=== PATIENT | female | born 1970 | race Caucasian/White ===

== ENCOUNTER → 2017-10-16 | Outpatient (CLI) | payer BC ==
[~2017-10-16] MED LIST: CYCL-331 PO; DIPH25CA58 PO; RABE20TA18 PO; TOPI25TA7 PO
== END | disposition home or self-care (01) ==
LOC: MAMMO 08:19
PROVIDERS: ATTEND Family Medicine
DX: Z12.31 Encounter for screening mammogram for malignant neoplasm of breast (principal)
CPT/HCPCS: 77063; 77067

== ENCOUNTER → 2017-11-07 | Day surgery (SDC) | payer BC ==
[~2017-11-07] MED LIST changes: +ALBUTEROL SULFATE 2.5 MG/3 ML NEBU. NEB PRN; +ATROPINE 0.5 MG/5 ML DISP.SYRIN. IV PRN; +CITA40TA12 PO; +CLON0.5T PO; +IV NORMAL SALINE 1,000ML 1,000 ML IV SCH; +IV RINGERS SOLUTION,LACTATED 1,000 ML IV ONE; +LACT1CAP8 PO; +LIDOCAINE 2% PF Vial for OR 5 ML VIAL. ONE; +NALOXONE 0.4 MG/ML VIAL. IV PRN; +ONDANSETRON PF 4 MG/2 ML VIAL. IV PRN; +PROPOFOL 40 ML IV ONE; +TEMA15CA PO; +diphenhydrAMINE 50 MG/ML VIAL IV PRN
[2017-11-07 13:31] LABS: U PREG PATIENT NEGATIVE (NEG)
[2017-11-07 14:58] VITALS: BP 116/72
== END | disposition home or self-care (01) ==
LOC: SURG 11:54
PROVIDERS: ATTEND Internal Medicine Gastroenterology
DX: K63.5 Polyp of colon (principal); K22.8 Other specified diseases of esophagus; K63.89 Other specified diseases of intestine; K21.9 Gastro-esophageal reflux disease without esophagitis; F41.9 Anxiety disorder, unspecified; F32.9 Major depressive disorder, single episode, unspecified; J45.909 Unspecified asthma, uncomplicated; Z88.6 Allergy status to analgesic agent; Z98.890 Other specified postprocedural states; F17.210 Nicotine dependence, cigarettes, uncomplicated; Z72.89 Other problems related to lifestyle
CPT/HCPCS: 43239; 45380; 45385; 81025; J2704; J3010; J7120; J2001

== ENCOUNTER 2018-05-14 08:19 | Observation (INO) | payer BC ==
[~2018-05-14] VITALS: Ht 172.7 cm; Wt 102.1 kg
[~2018-05-14 08:19] MED LIST changes: -ALBUTEROL SULFATE 2.5 MG/3 ML NEBU. NEB PRN; -ATROPINE 0.5 MG/5 ML DISP.SYRIN. IV PRN; -IV NORMAL SALINE 1,000ML 1,000 ML IV SCH; -IV RINGERS SOLUTION,LACTATED 1,000 ML IV ONE; -LIDOCAINE 2% PF Vial for OR 5 ML VIAL. ONE; -NALOXONE 0.4 MG/ML VIAL. IV PRN; -ONDANSETRON PF 4 MG/2 ML VIAL. IV PRN; -PROPOFOL 40 ML IV ONE; -diphenhydrAMINE 50 MG/ML VIAL IV PRN
[2018-05-14] MEDS ORDERED: MECLIZINE 12.5 MG TABLET. PO PRN (08:45)
[2018-05-14] MEDS ORDERED: IV NORMAL SALINE 1,000ML 1,000 ML IV ONE (09:00)
[2018-05-14 09:03] LABS: BASO % 0 % (0-3); EOS # 0.1 x10^3/uL (0.0-0.7); EOS % 1 % (0-3); HEMATOCRIT 41.8 % (36.0-47.0); HEMOGLOBIN 13.8 g/dL (12.0-15.5); LYMPH # 3.3 x10^3/uL (1.0-4.8); LYMPH % 27 % (24-48); MEAN CORPUSCULAR HEMOGLOBIN 31 pg (25-35); MEAN CORPUSCULAR HGB CONC 33 g/dL (31-37); MEAN CORPUSCULAR VOLUME 93 fL (79-100); MONO # 0.9 x10^3/uL (0.0-1.1); MONO % 8 % (0-9); NEUT # 7.7 x10^3uL (1.8-7.7); NEUT % 64 % (31-73); PLATELET COUNT 300 x10^3/uL (140-400); RED BLOOD COUNT 4.52 x10^6/uL (3.50-5.40); RED CELL DISTRIBUTION WIDTH 13.4 % (11.5-14.5); WHITE BLOOD COUNT 12.1 x10^3/uL (4.0-11.0)
[2018-05-14 09:09] LABS: BARBITURATES NEG (NEG); BENZODIAZEPINES NEG (NEG); CANNABINOIDS NEG (NEG); COCAINE NEG (NEG); METHADONE NEG (NEG); OPIATES NEG (NEG); PHENCYCLIDINE NEG (NEG)
[2018-05-14 09:13] LABS: AMPHETAMINE/METHAMPHETAMINE NEG (NEG)
[2018-05-14 09:18] LABS: ALBUMIN 3.5 g/dL (3.4-5.0); ALBUMIN/GLOBULIN RATIO 0.9 (1.0-1.7); CALCIUM 8.8 mg/dL (8.5-10.1); CREATININE 0.9 mg/dL (0.6-1.0); GFR 67.4; POTASSIUM 3.7 mmol/L (3.5-5.1); TOTAL BILIRUBIN 0.2 mg/dL (0.2-1.0); TOTAL PROTEIN 7.3 g/dL (6.4-8.2)
--- NOTE | 2018-05-14 09:24 | RAD ---
CHEST PA LATERAL History: DIZZY Comparison: Two-view chest 04/18/2017, [facility]. Findings: The cardiomediastinal silhouette is normal. Pulmonary vasculature is normal. The lungs are clear. No pleural effusion or pneumothorax is seen. There is no acute bone abnormality. IMPRESSION: No acute cardiopulmonary process. Electronically signed by: Leonard Ulloa MD (05/14/2018 9:22 AM) [id number]
[2018-05-14 09:25] LABS: BACTERIA,URINE FEW /HPF (0-FEW); BILIRUBIN,URINE NEG (NEG); CLARITY,URINE HAZY; COLOR,URINE YELLOW; GLUCOSE,URINE NEG (NEG); NITRITE,URINE NEG (NEG); SQUAMOUS EPITHELIAL CELL,UR MOD /LPF; UROBILINOGEN,URINE 0.2 mg/dL (0.2 mg/dL); YEAST,URINE PRESENT /HPF
--- NOTE | 2018-05-14 09:36 | RAD ---
CT scan of the head without contrast 05/14/2018 Clinical History: Dizziness. Technique: Unenhanced, contiguous, 5 mm axial sections were obtained through the head. One or more of the following individualized dose reduction techniques were utilized for this study: 1. Automated exposure control. 2. Adjustment of the mA and/or kV according to patient size. 3. Use of iterative reconstruction technique. Findings: Comparison study is dated 02/22/2011. The ventricles and sulci are within normal limits in size and configuration. No focal area of abnormal attenuation is seen involving the brain parenchyma. No extra-axial fluid collection is seen. No skull fracture is seen. Impression: Negative study. Electronically signed by: Miguel Angel Desouza MD (05/14/2018 9:33 AM) [id number]
--- NOTE | 2018-05-14 11:55 | PHYS DOC ---
Past History Past Medical History: Depression, GERD, IBS, Migraines, Other Past Surgical History: Other Smoking: Non-smoker Alcohol Use: Rarely Drug Use: None Adult General Chief Complaint Chief Complaint: DIZZY/LIGHT HEADED HPI HPI Patient is a 47 year old female who presents with complaining of dizziness. Patient states she felt sudden onset of dizziness while she was at work at 2300 last night and had slow speech and had to think about remembering the words and talking. Patient states the episodes last about 2-3 hours and she left her work around 1:30 AM and was able to fall asleep but this morning he still had mild confusion and dizziness. Patient complaining of increasing dizziness with moving her head and change of position and also complaining of headache and blurred vision. She complaining of left facial mild paresthesia Patient states she did not have history of the same episode or migraine headache or head injury. Review of Systems Review of Systems Constitutional: Denies fever or chills [] Eyes: Denies change in visual acuity, redness, or eye pain [] HENT: Denies nasal congestion or sore throat [] Respiratory: Denies cough or shortness of breath [] Cardiovascular: No additional information not addressed in HPI [] GI: Denies abdominal pain, nausea, vomiting, bloody stools or diarrhea [] : Denies dysuria or hematuria [] Musculoskeletal: Denies back pain or joint pain [] Integument: Denies rash or skin lesions [] Neurologic: Reports dizziness and headache and sensory change, denie focal weakness. Endocrine: Denies polyuria or polydipsia [] All other systems were reviewed and found to be within normal limits, except as documented in this note. Current Medications Current Medications Current Medications Medications (Trade) Dose Ordered Sig/Karli Start Time Stop Time Status Last Admin Dose Admin Meclizine HCl (Antivert) 25 mg PRN Q6HRS PRN 05/14/18 08:45 05/14/18 09:24 25 MG Sodium Chloride 1,000 ml @ 1,000 mls/hr 1X ONCE 05/14/18 09:00 05/14/18 09:59 DC 05/14/18 09:25 1,000 MLS/HR Allergies Allergies Allergies Coded Allergies Type Severity Reaction Last Updated Verified hydrocodone Allergy Intermediate 06/17/13 Yes Physical Exam Physical Exam Constitutional: Well developed, well nourished, mild distress, non-toxic appearance. [] HENT: Normocephalic, atraumatic, bilateral external ears normal, oropharynx moist, no oral exudates, nose normal. [] Eyes: PERRLA, EOMI, conjunctiva normal, no discharge. [] Neck: Normal range of motion, no tenderness, supple, no stridor. [] Cardiovascular:Heart rate regular rhythm, no murmur [] Lungs & Thorax: Bilateral breath sounds clear to auscultation [] Abdomen: Bowel sounds normal, soft, no tenderness, no masses, no pulsatile masses. [] Skin: Warm, dry, no erythema, no rash. [] Back: No tenderness, no CVA tenderness. [] Extremities: No tenderness, no cyanosis, no clubbing, ROM intact, no edema. [] Neurologic: Alert and oriented X 3, normal motor function, subjective paresthesias of right side of face, no focal deficits noted. [] Psychologic: Affect normal, judgement normal, mood normal. [] Current Patient Data Vital Signs Vital Signs Date Time Temp Pulse Resp B/P (MAP) Pulse Ox O2 Delivery O2 Flow Rate FiO2 05/14/18 10:50 62 19 106/59 (75) 100 05/14/18 08:19 97.8 Room Air Lab Results Laboratory Tests Test 05/14/18 08:20 05/14/18 08:36 05/14/18 08:40 Urine Collection Type Void Urine Color Yellow Urine Clarity Hazy Urine pH 6.0 Urine Specific [place] 1.010 Urine Protein Neg (NEG-TRACE) Urine Glucose (UA) Neg mg/dL (NEG) Urine Ketones (Stick) Neg mg/dL (NEG) Urine Blood Trace (NEG) Urine Nitrite Neg (NEG) Urine Bilirubin Neg (NEG) Urine Urobilinogen Dipstick 0.2 mg/dL (0.2 mg/dL) Urine Leukocyte Esterase Small (NEG) Urine RBC 1-2 /HPF (0-2) Urine WBC 1-4 /HPF (0-4) Urine Squamous Epithelial Cells Mod /LPF Urine Bacteria Few /HPF (0-FEW) Urine Yeast Present /HPF Urine Opiates Screen Neg (NEG) Urine Methadone Screen Neg (NEG) Urine Barbiturates Neg (NEG) Urine Phencyclidine Screen Neg (NEG) Urine Amphetamine/Methamphetamine Neg (NEG) Urine Benzodiazepines Screen Neg (NEG) Urine Cocaine Screen Neg (NEG) Urine Cannabinoids Screen Neg (NEG) Urine Ethyl Alcohol Neg (NEG) Glucose (Fingerstick) 89 mg/dL (70-99) White Blood Count 12.1 x10^3/uL (4.0-11.0) H Red Blood Count 4.52 x10^6/uL (3.50-5.40) Hemoglobin 13.8 g/dL (12.0-15.5) Hematocrit 41.8 % (36.0-47.0) Mean Corpuscular Volume 93 fL (79-100) Mean Corpuscular Hemoglobin 31 pg (25-35) Mean Corpuscular Hemoglobin Concent 33 g/dL (31-37) Red Cell Distribution Width 13.4 % (11.5-14.5) Platelet Count 300 x10^3/uL (140-400) Neutrophils (%) (Auto) 64 % (31-73) Lymphocytes (%) (Auto) 27 % (24-48) Monocytes (%) (Auto) 8 % (0-9) Eosinophils (%) (Auto) 1 % (0-3) Basophils (%) (Auto) 0 % (0-3) Neutrophils # (Auto) 7.7 x10^3uL (1.8-7.7) Lymphocytes # (Auto) 3.3 x10^3/uL (1.0-4.8) Monocytes # (Auto) 0.9 x10^3/uL (0.0-1.1) Eosinophils # (Auto) 0.1 x10^3/uL (0.0-0.7) Basophils # (Auto) 0.0 x10^3/uL (0.0-0.2) Sodium Level 139 mmol/L (136-145) Potassium Level 3.7 mmol/L (3.5-5.1) Chloride Level 102 mmol/L (98-107) Carbon Dioxide Level 28 mmol/L (21-32) Anion Gap 9 (6-14) Blood Urea Nitrogen 18 mg/dL (7-20) Creatinine 0.9 mg/dL (0.6-1.0) Estimated GFR (Cockcroft-Gault) 67.4 BUN/Creatinine Ratio 20 (6-20) Glucose Level 97 mg/dL (70-99) Calcium Level 8.8 mg/dL (8.5-10.1) Total Bilirubin 0.2 mg/dL (0.2-1.0) Aspartate Amino Transferase (AST) 11 U/L (15-37) L Alanine Aminotransferase (ALT) 17 U/L (14-59) Alkaline Phosphatase 95 U/L (46-116) Creatine Kinase 38 U/L (26-192) Troponin I Quantitative < 0.017 ng/mL (0-0.055) Total Protein 7.3 g/dL (6.4-8.2) Albumin 3.5 g/dL (3.4-5.0) Albumin/Globulin Ratio 0.9 (1.0-1.7) L EKG EKG EKG interpreted by me. EKG performed care physician office at 0705 showed normal sinus rhythm at rate of 65, normal CO and QT intervals, no acute ST and T -wave abnormalities. Radiology/Procedures Radiology/Procedures [address] [address] IMAGING REPORT Signed PATIENT: MARTINA PARRY ACCOUNT: [id number] : 1970 LOCATION: ER AGE: 47 SEX: F EXAM STATUS: REG ER ORD. PHYSICIAN: KIMBER SCHMID MD REASON: dizziness PROCEDURE: CHEST PA & LATERAL CHEST PA LATERAL History: DIZZY Comparison: Two-view chest 04/18/2017, [facility]. Findings: The cardiomediastinal silhouette is normal. Pulmonary vasculature is normal. The lungs are clear. No pleural effusion or pneumothorax is seen. There is no acute bone abnormality. IMPRESSION: No acute cardiopulmonary process. Electronically signed by: Leonard Ulloa MD (05/14/2018 9:22 AM) [id number] DICTATED AND SIGNED BY: LEONARD ULLOA MD DATE: 05/14/18 0922 CC: JEFF SCHREIBER MD; KIMBER SCHMID MD ~ [address] [address] IMAGING REPORT Signed PATIENT: MARTINA PARRY ACCOUNT: [id number] : 1970 LOCATION: ER AGE: 47 SEX: F EXAM STATUS: REG ER ORD. PHYSICIAN: KIMBER SCHMID MD REASON: dizziness PROCEDURE: CT HEAD WO CONTRAST CT scan of the head without contrast 05/14/2018 Clinical History: Dizziness. Technique: Unenhanced, contiguous, 5 mm axial sections were obtained through the head. One or more of the following individualized dose reduction techniques were utilized for this study: 1. Automated exposure control. 2. Adjustment of the mA and/or kV according to patient size. 3. Use of iterative reconstruction technique. Findings: Comparison study is dated 02/22/2011. The ventricles and sulci are within normal limits in size and configuration. No focal area of abnormal attenuation is seen involving the brain parenchyma. No extra-axial fluid collection is seen. No skull fracture is seen. Impression: Negative study. Electronically signed by: Miguel Angel Desouza MD (05/14/2018 9:33 AM) [email or web address] DICTATED AND SIGNED BY: MIGUEL ANGEL DESOUZA MD DATE: 05/14/18 0933 CC: JEFF SCHREIBER MD; KIMBER SCHMID MD ~ Course & Med Decision Making Course & Med Decision Making Pertinent Labs and Imaging studies reviewed. (See chart for details) Evaluation of patient in ER showed 47-year-old female patient with complaining of dizziness and confusion and right facial numbness since last night. Patient had NIHS scale of 1 with unremarkable labs. Plan to admit patient for evaluation of confusion and paresthesia. Dragon Disclaimer Dragon Disclaimer This electronic medical record was generated, in whole or in part, using a voice recognition dictation system. Departure Departure: Impression: Primary Impression: Dizziness Disposition: 09 ADMITTED INPATIENT (at 1052) Admitting Physician: Jeff Schreiber (accepted admission at 1050) Condition: IMPROVED Referrals: JEFF SCHREIBER MD (PCP) NIHSS - ED NIH Stroke Scale: NIH Stroke Scale Response (Comments) Value Level of Consciousness: 0 Alert/Responsive 0 LOC Questions: 0 Answers both correctly 0 LOC Commands: 0 Performs both tasks 0 Best Gaze: 0 Normal 0 Visual: 0 No visual loss 0 Facial Palsy: 0 Normal, symmetrical 0 Motor - Left Arm 0 No drift 0 Motor - Right Arm 0 No drift 0 Motor - Left Leg 0 No drift 0 Motor: Right Leg 0 No drift 0 Limb Ataxia: 0 Absent 0 Sensory: 1 Mid to moderate loss 1 Best Language: 0 Normal 0 Dysathria: 0 Normal 0 Extinction and Inattention: 0 Normal 0 Total 1 KIMBER SCHMID MD May 14, 2018 11:55
[2018-05-14] MEDS ORDERED: CLON0.5T PO (13:30)
[2018-05-14] MEDS ORDERED: RABE20TA26 PO (13:30)
[2018-05-14 15:46] VITALS: BP 97/55
--- NOTE | 2018-05-14 16:09 | RAD ---
Clinical indications: Patient began feeling dizzy last night. Had visual changes in the right eye that lasted 30 minutes to 1 hour. Tingling in the right side of the face. History of smoking.. Duplex sonography of the cervical portion of both carotid arteries was performed including color flow imaging and spectral waveform analysis with flow velocity measurement and jacome scale evaluation. Right side: Peak systolic flow velocity of the CCA is 106 cm/sec. Peak systolic flow velocity of the ICA is 88 cm/sec. Thus, the ICA/CCA ratio is less than 1.0. Peak end diastolic flow velocity of the ICA is 36 cm/sec. The peak systolic velocity of the ECA is 87 cm/sec. Left side: Peak systolic flow velocity of the CCA is 93 cm/sec. Peak systolic flow velocity of the ICA is 64 cm/sec. Thus, the ICA/CCA ratio is less than 1.0. Peak end diastolic flow velocity of the ICA is 30 cm/sec. Peak systolic flow velocity of the ECA is 91 cm/sec. No significant plaque formation is identified. Antegrade vertebral flow is seen bilaterally. The measurements were made using the NASCET criteria. Impression:No significant plaque formation is identified within the cervical portion of either carotid artery. Electronically signed by: Adriano Forde MD (05/14/2018 4:06 PM) [place] [id number]
[2018-05-14] MEDS ORDERED: IOHEXOL 350 MG/ML 100 ML VIAL. IV ONE (20:00)
[2018-05-14 20:13] VITALS: BP 97/60
[2018-05-14 21:00] VITALS: BP 110/62
[2018-05-14] MEDS ORDERED: TEMAZEPAM 15 MG CAPSULE PO SCH (21:00)
[2018-05-14 23:15] VITALS: BP 110/65
[2018-05-15 00:14] VITALS: BP 110/65
[2018-05-15 04:30] VITALS: BP 109/53
[2018-05-15 05:34] VITALS: BP 98/59
[2018-05-15 06:23] LABS: BASO # 0.2 x10^3/uL (0.0-0.2); BASO % 1 % (0-3); EOS # 0.1 x10^3/uL (0.0-0.7); EOS % 1 % (0-3); HEMATOCRIT 42.5 % (36.0-47.0); HEMOGLOBIN 13.9 g/dL (12.0-15.5); LYMPH # 2.3 x10^3/uL (1.0-4.8); LYMPH % 20 % (24-48); MEAN CORPUSCULAR HEMOGLOBIN 31 pg (25-35); MEAN CORPUSCULAR HGB CONC 33 g/dL (31-37); MEAN CORPUSCULAR VOLUME 94 fL (79-100); MONO # 0.7 x10^3/uL (0.0-1.1); MONO % 6 % (0-9); NEUT # 8.1 x10^3uL (1.8-7.7); NEUT % 72 % (31-73); PLATELET COUNT 303 x10^3/uL (140-400); RED BLOOD COUNT 4.55 x10^6/uL (3.50-5.40); RED CELL DISTRIBUTION WIDTH 13.5 % (11.5-14.5); WHITE BLOOD COUNT 11.3 x10^3/uL (4.0-11.0)
[2018-05-15 06:32] LABS: CALCIUM 8.8 mg/dL (8.5-10.1); CREATININE 0.8 mg/dL (0.6-1.0); GFR 77.2; POTASSIUM 4.4 mmol/L (3.5-5.1)
[2018-05-15] MEDS ORDERED: PANTOPRAZOLE 40 MG TABLET. PO SCH (07:30)
[2018-05-15] MEDS ORDERED: ASPIRIN 325 MG TABLET PO SCH (08:00)
[2018-05-15] MEDS ORDERED: IOHEXOL 350 MG/ML 100 ML VIAL. IV ONE (08:15)
[2018-05-15] MEDS ORDERED: CITALOPRAM 20 MG TABLET. PO SCH (09:00)
[2018-05-15] MEDS ORDERED: clonazePAM 0.5 MG TABLET PO SCH (09:00)
[2018-05-15] MEDS ORDERED: MECL12.52 PO (10:09)
--- NOTE | 2018-05-15 14:46 | PN ---
DATE: SUBJECTIVE: The patient denies any new medical or neurological complaints. She denies headaches, nausea, vomiting, chest pain, shortness of breath or palpitation, dysarthria, dysphagia, weakness or paresthesia. OBJECTIVE: GENERAL: Moderately obese female, not in acute distress. VITAL SIGNS: Blood pressure 97/60, respiratory rate 17, pulse is 62 and regular, temperature 98.3, oxygen saturation 95% on room air. HEENT: Normocephalic, atraumatic, otherwise unremarkable. NECK: Supple, negative for carotid bruit, lymphadenopathy or thyromegaly. LUNGS: Clear to A and P. CARDIOVASCULAR: Regular rate and rhythm, normal S1, S2. There is no S3, S4, or murmur. ABDOMEN: Soft. Bowel sounds positive. EXTREMITIES: Negative for cyanosis, clubbing or pitting edema. NEUROLOGICAL EXAM: Mental Status: The patient has normal mental status and intact cranial nerves. There is no focal motor or sensory deficit. Deep tendon reflexes were symmetric and active without pathology responses. Gait and coordination were normal. LABORATORY DATA: CBC revealed white blood cells of 11.3 thousands, hemoglobin 13.9, hematocrit 42.5 and platelet count 303,000. Chemistry revealed sodium of 140, potassium 4.4, chloride 105, CO2 29, BUN 12, creatinine 0.8, glucose 98, and calcium 8.8. IMPRESSION: 1. New onset of dizziness with recent history of a right otitis media and current normal neurological examination represent paroxysmal benign positional vertigo, aggravated by recent otitis media with a mild leukocytosis. The patient has been on Augmentin. 2. Questionable depressions and anxiety. 3. Gastroesophageal reflux disease. RECOMMENDATIONS: We will continue with current management initiated by Dr. Newberry and continue with vestibular exercise. M Bucky CHATMAN MD DR: MONIKA/sharda JOB#: [id number] / [id number]
--- NOTE | 2018-05-15 15:53 | CONS ---
DATE OF CONSULTATION: 05/14/2018 NEUROLOGY CONSULTATION REFERRING PHYSICIAN: Jean Pierre Newberry MD REASON FOR CONSULTATION: Dizziness and lightheadedness. HISTORY OF PRESENT ILLNESS: This is a 47-year-old right-handed female who was admitted through Emergency Room on account of dizziness, described as lightheadedness and sometimes spinning. The symptoms usually aggravated by changing her body positions quickly or turning her head quickly to any directions. According to the patient few days ago, she was found to have right ear infection and she has been on Augmentin since. The patient also has intermittent numbness and paresthesia of the right side of her face. The patient denies any history of similar episode in the past. She denies any recent head injuries or fall. She denies chest pain, shortness of breath or palpitation, dysarthria, dysphagia or weakness. Initial nonenhanced head CT scan revealed no acute intracranial process and carotid Doppler study revealed no significant plaque formation. Chest x-ray revealed no evidence of acute cardiopulmonary process. PAST MEDICAL HISTORY: Significant for anxiety, depression, GERD, IBS, and migraine headaches and recently diagnosed with right ear infections. SOCIAL HISTORY: The patient is . She denies smoking, alcohol drinking, or illicit drug use. PAST SURGICAL HISTORY: The patient had hysterectomy and knee surgeries. CURRENT HOME MEDICATIONS: Aspirin 81 mg daily, Celexa 20 mg p.o. daily, clonazepam 0.5 mg t.i.d. p.r.n. for anxiety, rabeprazole 20 mg p.o. daily, and Augmentin. ALLERGIES: HYDROCODONE. REVIEW OF SYSTEMS: A 10-point review of system was performed as mentioned above in history of present illness. PHYSICAL EXAMINATION: GENERAL: A moderately obese female, not in acute distress. She weighs 225 pounds. VITAL SIGNS: Blood pressure 110/62, respiratory rate 20, pulse is 62, oxygen saturation is 98% on room air. HEENT: Normocephalic, atraumatic, otherwise unremarkable. NECK: Supple. Negative for carotid bruit, lymphadenopathy or thyromegaly. LUNGS: Clear to A and P. CARDIOVASCULAR: Regular rhythm, normal S1, S2. There is no S3, S4 or murmur. ABDOMEN: Soft. Bowel sounds positive. EXTREMITIES: Negative for cyanosis, clubbing or pitting edema. NEUROLOGIC: Mental status: The patient is alert and oriented x 3. Speech is fluent. There is no language dysfunction. Memory, judgment, and abstracting thinking are normal. The patient denies hallucination or delusion. CRANIAL NERVES: Visual fontenot are full. The pupils are reactive to light and accommodation. The extraocular movements are intact. There is no nystagmus. There is no facial motor or sensory deficit. Hearing is intact bilaterally. The palate is elevated symmetrically. Sternocleidomastoid muscles are powerful bilaterally. The patient shrugs her shoulders symmetrically, protrudes her tongue in the midline without fasciculation or atrophy. MOTOR: No focal muscle bulk was seen. The tone is normal. The strength is 5/5 throughout. SENSORY: Revealed normal pinprick, light touch, vibratory and position senses. Deep tendon reflexes were symmetric and active without pathology responses. Gait: The stance is steady. The patient walks without assistance. LABORATORY DATA: CBC revealed white blood cells of 12.1 thousand, hemoglobin 13.8, hematocrit 41.8, platelet count 300,000. Chemistry revealed sodium of 139, potassium 3.7, chloride 102, CO2 of 28, BUN 18, creatinine 0.9, glucose 97, calcium 8.8. Liver enzymes are normal. Troponin level is normal. Urinalysis is negative for urinary tract infections. Urine drug screen is negative as well. DIAGNOSTIC DATA: Head CT scan, carotid Doppler study, and chest x-ray as mentioned above in history of present illness. IMPRESSION: 1. New onset dizziness described as spinning and aggravated by change of body positions or turning head quickly, and sometimes associated with nausea and paresthesia of the right face. Currently, her neurological examination is unremarkable. This finding may represent vestibular dysfunctions and possible paroxysmal benign positional vertigo, aggravated by recent right ear infections. 2. Gastroesophageal reflux disease, depressions, and anxiety. RECOMMENDATIONS: 1. Vestibular exercise. 2. The patient has been on meclizine on p.r.n. basis for dizziness. 2. We will continue with current management initiated by Dr. Newberry. 3. Physical therapy evaluation. M Bucky CHATMAN MD DR: MONIKA/sharda JOB#: [id number] / [id number]
== END 2018-05-15 10:21 | disposition still patient (30) ==
LOC: ER 08:19 → INTOOBSV 10:53 → ICU 10:53
PROVIDERS: ADMIT Family Medicine; ATTEND Family Medicine
DX: H81.10 Benign paroxysmal vertigo, unspecified ear (principal); H66.91 Otitis media, unspecified, right ear; F41.9 Anxiety disorder, unspecified; K21.9 Gastro-esophageal reflux disease without esophagitis; K58.9 Irritable bowel syndrome, unspecified; J45.909 Unspecified asthma, uncomplicated; Z88.8 Allergy status to other drugs, medicaments and biological substances; Z90.710 Acquired absence of both cervix and uterus; Z79.82 Long term (current) use of aspirin; Z79.899 Other long term (current) drug therapy; F32.9 Major depressive disorder, single episode, unspecified; G43.909 Migraine, unspecified, not intractable, without status migrainosus
CPT/HCPCS: 36415; 70450; 71046; 80048; 80053; 80061; 80307; 81001; 82550; 82947; 84484; 85025; 87086; 87641; 93880; 96360; 96361; 97165; 99284; G0378; J8597; G0379; J7030

== ENCOUNTER → 2019-06-13 | Outpatient (CLI) | payer BC ==
[~2019-06-13] MED LIST changes: +MECL12.573 PO; +RABE20TA26 PO
--- NOTE | 2019-06-13 10:03 | RAD ---
EXAM: Chest, 2 views. HISTORY: Hemoptysis. COMPARISON: 05/14/2018 FINDINGS: 2 views of the chest are obtained. There is no infiltrate, pleural effusion or pneumothorax. The heart is normal in size. IMPRESSION: No acute pulmonary finding. Electronically signed by: Brittni Hodges MD (06/13/2019 10:00 AM) [facility]
[2019-06-15 21:06] LABS: CODFISH <0.10 kU/L (Class 0); CORN <0.10 kU/L (Class 0); EGG WHITE <0.10 kU/L (Class 0); MILK <0.10 kU/L (Class 0); PEANUT <0.10 kU/L (Class 0); SHRIMP <0.10 kU/L (Class 0); SOYBEAN <0.10 kU/L (Class 0); WALNUT <0.10 kU/L (Class 0); WHEAT <0.10 kU/L (Class 0)
[2019-06-17 22:07] LABS: ALTERNARIA <0.10 kU/L (Class 0); ASH <0.10 kU/L (Class 0); ASPERGILLUS <0.10 kU/L (Class 0); BERMUDA <0.10 kU/L (Class 0); CAT DANDER <0.10 kU/L (Class 0); CLADOSPORIUM <0.10 kU/L (Class 0); COCKROACH <0.10 kU/L (Class 0); COTTONWOOD <0.10 kU/L (Class 0); DOG DANDER <0.10 kU/L (Class 0); DUST MITE <0.10 kU/L (Class 0); ELM <0.10 kU/L (Class 0); MAPLE <0.10 kU/L (Class 0); MOUNTAIN CEDAR <0.10 kU/L (Class 0); MULBERRY <0.10 kU/L (Class 0); NETTLE <0.10 kU/L (Class 0); OAK TREE <0.10 kU/L (Class 0); PENICILLIUM <0.10 kU/L (Class 0); RAST IGE 14 IU/mL (6-495); RUSSIAN THISTLE <0.10 kU/L (Class 0); SHEEP SORREL <0.10 kU/L (Class 0); SHORT RAGWEED <0.10 kU/L (Class 0); TIMOTHY GRASS <0.10 kU/L (Class 0)
== END | disposition home or self-care (01) ==
LOC: RAD 09:41
PROVIDERS: ATTEND Nurse Practitioner Adult Health
DX: R04.2 Hemoptysis (principal)
CPT/HCPCS: 36415; 71046; 82785; 86003

== ENCOUNTER 2019-09-26 09:44 | Emergency (ER) | payer BC ==
[~2019-09-26] VITALS: Ht 172.7 cm; Wt 112.4 kg
[2019-09-26] MEDS ORDERED: KETOROLAC 30 MG/ML VIAL. IVP ONE (10:30)
[2019-09-26] MEDS ORDERED: METOCLOPRAMIDE HCL 10 MG/2 ML VIAL. IVP ONE (10:30)
[2019-09-26] MEDS ORDERED: IV NORMAL SALINE 1,000ML 1,000 ML IV ONE (10:30)
[2019-09-26] MEDS ORDERED: diphenhydrAMINE 50 MG/ML VIAL IVP ONE (10:30)
--- NOTE | 2019-09-26 10:39 | PHYS DOC ---
Past History Past Medical History: Depression, GERD, IBS, Migraines, Other Past Surgical History: Other Smoking: Non-smoker Alcohol Use: Rarely Drug Use: None General Adult EDM: Chief Complaint: HEADACHE HPI: HPI: 49-year-old female presents with left sided ear and head pain. Patient has had multiple ear infections. They are usually on the left. She is currently on clindamycin for this. This is day 4 of treatment. She has seen ENT several years ago and they said she is fine. Patient presents today because she had a severe entire left side of her head pain and thinks that she had a short syncopal episode because of it. Her says that she passed out, but the patient does not remember. Other than the patient's ear pain, she has been feeling normal prior to this episode. She denies nausea, vomiting, fever, or chills. She did have episodes of diarrhea yesterday. Review of Systems: Review of Systems: Constitutional: Denies fever or chills Eyes: Denies change in visual acuity HENT: Left ear and face pain Respiratory: Denies cough or shortness of breath Cardiovascular: Denies chest pain or edema GI: Denies abdominal pain, nausea, vomiting, bloody stools or diarrhea : Denies dysuria Musculoskeletal: Denies back pain or joint pain Integument: Denies rash Neurologic: Denies headache, focal weakness or sensory changes Endocrine: Denies polyuria or polydipsia Lymphatic: Denies swollen glands Psychiatric: Denies depression or anxiety Heart Score: Risk Factors: Risk Factors: DM, Current or recent (<one month) smoker, HTN, HLP, family history of CAD, obesity. Risk Scores: Score 0 - 3: 2.5% MACE over next 6 weeks - Discharge Home Score 4 - 6: 20.3% MACE over next 6 weeks - Admit for Clinical Observation Score 7 - 10: 72.7% MACE over next 6 weeks - Early Invasive Strategies Current Medications: Current Meds: Current Medications Medications (Trade) Dose Ordered Sig/Karli Start Time Stop Time Status Last Admin Dose Admin Diphenhydramine HCl (Benadryl) 25 mg 1X ONCE 09/26/19 10:30 09/26/19 10:31 DC Ketorolac Tromethamine (Toradol 30mg Vial) 30 mg 1X ONCE 09/26/19 10:30 09/26/19 10:31 DC Metoclopramide HCl (Reglan Vial) 10 mg 1X ONCE 09/26/19 10:30 09/26/19 10:31 DC Sodium Chloride 1,000 ml @ 1,000 mls/hr 1X ONCE 09/26/19 10:30 09/26/19 11:29 Allergies: Allergies: Allergies Coded Allergies Type Severity Reaction Last Updated Verified hydrocodone Allergy Intermediate 06/17/13 Yes Physical Exam: PE: Constitutional: Well developed, morbidly obese, well nourished, no acute distress, non-toxic appearance. [] HENT: Normocephalic, atraumatic, bilateral external ears normal, oropharynx moist, no oral exudates, nose normal. Bilateral tympanic membranes normal. Tenderness over the left TMJ [] Eyes: PERRLA, EOMI, conjunctiva normal, no discharge. [] Neck: Normal range of motion, no tenderness, supple, no stridor. [] Cardiovascular: Heart rate regular rhythm, no murmur [] Lungs & Thorax: Bilateral breath sounds clear to auscultation [] Abdomen: Bowel sounds normal, soft, no tenderness, no masses, no pulsatile masses. [] Skin: Warm, dry, no erythema, no rash. [] Back: No tenderness, no CVA tenderness. [] Extremities: No tenderness, no cyanosis, no clubbing, ROM intact, no edema. [] Neurologic: Alert and oriented X 3, normal motor function, normal sensory function, no focal deficits noted. [] Psychologic: Affect normal, judgement normal, mood anxious, frustrated. [] EKG: EKG: [] Radiology/Procedures: Radiology/Procedures: [] Impressions: T HEAD WO CONTRAST Clinical indications: Reason: LEFT SIDED HEADACHE, SYNCOPE EPISODE, MULTIPLE EAR INFECTIONS COMPARISON: May 14, 2018. Technique: Noncontrast axial cross sectional scanning of the head was performed. PQRS compliance Statement One or more of the following individualized dose reduction techniques were utilized for this study: 1. Automated exposure control 2. Adjustment of the mA and/or kV according to patient size 3. Use of iterative reconstruction technique Findings: No acute intracranial hemorrhage or midline shift or mass-effect or hydrocephalus or extra-axial fluid collection is seen. No focal hypodense area or sulci effacement is seen to indicate an acute infarct or edema radiographically. No skull fracture or pneumocephalus is seen. No opacification of the mastoid sinuses or the middle ear cavities or the paranasal sinuses is seen. The maxillary sinuses are not completely seen in this study. Impression: No acute intracranial abnormality is seen. Electronically signed by: Chrissy Forde MD (09/26/2019 10:53 AM) [id number] DICTATED AND SIGNED BY: CHRISSY FORDE MD DATE: 09/26/19 1053 CC: JONATHAN ESCOBAR DO; JEFF SCHREIBER MD ~ Course & Med Decision Making: Course & Med Decision Making Pertinent Labs and Imaging studies reviewed. (See chart for details) The patient's labs are unremarkable. Her head CT is unremarkable. I have given her a liter normal saline, 30 mg of Toradol, 10 mg of Reglan, and a 25 mg of Benadryl for her pain. The patient is feeling a little bit better. She would like to go home. I believe this is reasonable. Not exactly sure what is causing her discomfort. She is stable for discharge at this time. [] Daija Disclaimer: Dragmilka Disclaimer: This electronic medical record was generated, in whole or in part, using a voice recognition dictation system. Departure Departure: Impression: Primary Impression: Headache Qualified Codes: R51 - Headache Additional Impression: Ear pain, left Disposition: 01 HOME/RESIDENCE PRIOR TO ADM Condition: STABLE Referrals: JEFF SCHREIBER MD (PCP) Patient Instructions: General Headache Without Cause, [id number] Justification of Admission: Justification of Admission: Justification of Admission Dx: N/A JONATHAN ESCOBAR DO Sep 26, 2019 10:39
--- NOTE | 2019-09-26 10:56 | RAD ---
CT HEAD WO CONTRAST Clinical indications: Reason: LEFT SIDED HEADACHE, SYNCOPE EPISODE, MULTIPLE EAR INFECTIONS COMPARISON: May 14, 2018. Technique: Noncontrast axial cross sectional scanning of the head was performed. PQRS compliance Statement One or more of the following individualized dose reduction techniques were utilized for this study: 1. Automated exposure control 2. Adjustment of the mA and/or kV according to patient size 3. Use of iterative reconstruction technique Findings: No acute intracranial hemorrhage or midline shift or mass-effect or hydrocephalus or extra-axial fluid collection is seen. No focal hypodense area or sulci effacement is seen to indicate an acute infarct or edema radiographically. No skull fracture or pneumocephalus is seen. No opacification of the mastoid sinuses or the middle ear cavities or the paranasal sinuses is seen. The maxillary sinuses are not completely seen in this study. Impression: No acute intracranial abnormality is seen. Electronically signed by: Adriano Forde MD (09/26/2019 10:53 AM) [id number]
[2019-09-26 11:04] LABS: BASO # 0.1 x10^3/uL (0.0-0.2); BASO % 1 % (0-3); EOS % 0 % (0-3); HEMATOCRIT 40.3 % (36.0-47.0); HEMOGLOBIN 13.6 g/dL (12.0-15.5); LYMPH # 1.9 x10^3/uL (1.0-4.8); LYMPH % 13 % (24-48); MEAN CORPUSCULAR HEMOGLOBIN 32 pg (25-35); MEAN CORPUSCULAR HGB CONC 34 g/dL (31-37); MEAN CORPUSCULAR VOLUME 94 fL (79-100); MONO # 0.6 x10^3/uL (0.0-1.1); MONO % 4 % (0-9); NEUT # 11.7 x10^3uL (1.8-7.7); NEUT % 82 % (31-73); PLATELET COUNT 250 x10^3/uL (140-400); RED BLOOD COUNT 4.28 x10^6/uL (3.50-5.40); RED CELL DISTRIBUTION WIDTH 13.4 % (11.5-14.5); WHITE BLOOD COUNT 14.3 x10^3/uL (4.0-11.0)
[2019-09-26 11:07] LABS: CALCIUM 8.7 mg/dL (8.5-10.1); CREATININE 0.9 mg/dL (0.6-1.0); GFR 66.8; POTASSIUM 3.9 mmol/L (3.5-5.1)
[2019-09-26 11:07] LABS: BARBITURATES NEG (NEG); BENZODIAZEPINES NEG (NEG); CANNABINOIDS NEG (NEG); COCAINE NEG (NEG); METHADONE NEG (NEG); OPIATES NEG (NEG); PHENCYCLIDINE NEG (NEG)
[2019-09-26 11:09] LABS: AMPHETAMINE/METHAMPHETAMINE NEG (NEG)
[2019-09-26 11:13] LABS: BILIRUBIN,URINE NEG (NEG); CLARITY,URINE CLEAR; COLOR,URINE YELLOW; GLUCOSE,URINE NEG (NEG); NITRITE,URINE NEG (NEG); UROBILINOGEN,URINE 0.2 mg/dL (0.2 mg/dL)
[2019-09-26 11:13] LABS: ALBUMIN 3.6 g/dL (3.4-5.0); ALBUMIN/GLOBULIN RATIO 0.9 (1.0-1.7); TOTAL BILIRUBIN 0.2 mg/dL (0.2-1.0); TOTAL PROTEIN 7.4 g/dL (6.4-8.2)
[2019-09-26 11:14] LABS: BACTERIA,URINE FEW /HPF (0-FEW); RBC,URINE RARE /HPF (0-2); SQUAMOUS EPITHELIAL CELL,UR FEW /LPF; WBC,URINE OCC /HPF (0-4)
[2019-09-26 12:34] VITALS: BP 116/71
== END 2019-09-26 12:15 | disposition home or self-care (01) ==
LOC: ER 09:44
DX: G43.909 Migraine, unspecified, not intractable, without status migrainosus (principal); H92.02 Otalgia, left ear; R55 Syncope and collapse; K21.9 Gastro-esophageal reflux disease without esophagitis; K58.9 Irritable bowel syndrome, unspecified; Z88.5 Allergy status to narcotic agent
CPT/HCPCS: 36415; 70450; 80053; 80307; 81001; 85025; 96361; 96374; 96375; 99284; J1200; J1885; J2765; J7030

== ENCOUNTER → 2020-07-03 | Outpatient (CLI) | payer BC ==
[~2020-07-03] MED LIST changes: -MECL12.573 PO; +MECL12.582 PO; -RABE20TA26 PO; +RABE20TA29 PO
--- NOTE | 2020-07-03 16:38 | RAD ---
XR RIBS 2 VIEWS LT 07/03/2020 1:11 PM INDICATION: Left rib pain post fall COMPARISON: None available. TECHNIQUE: 3 views of the left ribs are presented. FINDINGS/ IMPRESSION: No acutely dyspneic left-sided rib fracture. Left lung appears clear. No soft tissue abnormality is i dentified. Electronically signed by: Patricia Bustillos MD (07/03/2020 4:36 PM) [id number]
== END ==
LOC: RAD 12:58
PROVIDERS: ATTEND Family Medicine
DX: R07.81 Pleurodynia (principal)
CPT/HCPCS: 71100

== ENCOUNTER → 2020-08-20 | Outpatient (CLI) | payer BC ==
[2020-08-18 10:37] VITALS: BP 123/83
[~2020-08-20] MED LIST changes: +ASPI-889 PO; +ATOR20TA58 PO; +LUBI24CA7 PO; +REGADENOSON 0.4 MG/5 ML DISP.SYRIN. IV ONE
--- NOTE | 2020-08-20 14:06 | RAD ---
MR#: [id number] Date of Study: 08/20/2020 Ordering Physician: CHARLI PEDERSEN, Referring Physician: OREN CHIU Tech: RT Robb PappasR) (N) APPROVED REPORT Test Type: Pharmacological Stress Nurse/Tech: RT Mian (Everardo) (N) Test Indications: chest pain Cardiac History: none Medications: see EHR Medical History: asthma, smoker Resting ECG: sinus rhythm Resting Heart Rate: 62 bpm Resting Blood Pressure: 108/55mmHg Pretest Chest Pain: None Nurse/Tech Notes Consent: The procedure was explained to the patient in lay terms. Informed consent was witnessed. Papa eout was entered into [email or web address]. History and Stress Test performed by RT Sandy Pappas) (N) Pharm. Details Pharmacologic stress testing was performed using 0.4mg per 5ml of regadenoson given intravenously ove r 7-10 seconds. Stress Symptoms Dyspnea POST EXERCISE Reason for Termination: Infusion complete Max HR: 101 bpm Max Blood Pressure: 116/50mmHg INTERPRETATION Stress EKG Conclusion: No acute changes were noted. Imaging Protocol IMAGE PROTOCOL: Rest Tc-99m/stress Tc-99m 1 day Rest: Stress: Viability: Radiopharm.Tc99m DwenrxhntAo10h Sestamibi Dose10.8mCi 31.5mCi Duration 15min. 10min. Img Date 08/20/2020 08/20/2020 Inj-Img [id number]. 60min. Rest Admin Site:IV - Right AntecubitalAdministrator: RT Mian (Everardo)(N) Stress Admin Site: IV - Right AntecubitalAdministrator: RT Sandy Pappas)(N) STRESS DATA End Diast. Vol.84.0mlAv. Heart Rate65.0bpm End Syst. Vol.23.0mlCO Index BSA0.0L/min Myocardial Srua488.0gEject. Gfjtlbgc20.0% Stress Rates Pk. Fill Rate2.59EDV/secLVtime Pk. Fill 155.87msec Pk. Empty Rate4.27ESV/secLVtime Pk. Oinkz145.22msec 1/3 Pk. Fill1.41EDV/sec Stress Scores Regional WT0.00Summed WT3.00 Regional WM0.00Summed WM2.00 The rest and stress images show normal perfusion, normal contraction and thickening. LV Perf. Quant 17 Seg. SSS2.00 17 Seg. SRS2.00 17 Seg. SDS0.00 Stress Defect Extent (% LAD)5.60Rest Defect Extent (% LAD)0.00Rev. Defect Extent (% LAD)5.60 Stress Defect Extent (% LCX) 0.00Rest Defect Extent (% LCX)10.00Rev. Defect Extent (% LCX)0.00 Stress Defect Extent (% RCA)0.00Rest Defect Extent (% RCA)0.00Rev. Defect Extent (% RCA)0.00 Stress Defect Extent (% MELANIE)2.00Rest Defect Extent (% MELANIE)1.70Rev. Defect Extent (% MELANIE)2.00 Other Information Quality:Good Risk Assessment: Low Risk Conclusion 1. No evidence of EKG changes with stress testing. 2. Normal perfusion at stress/rest. 3. Low risk study. 4. EF > 60%. Signed by : Charli Pedersen, Electronically Approved : 08/20/2020 14:05:56
== END ==
LOC: NM 08:17
PROVIDERS: ATTEND Internal Medicine Cardiovascular Disease
DX: R07.9 Chest pain, unspecified (principal)
CPT/HCPCS: 78452; 93017; A9500; J2785